=== PATIENT | female | born 1975 | race Caucasian/White ===

== ENCOUNTER 2016-11-21 02:34 | Emergency (ER) | payer OTHER ==
[~2016-11-21] VITALS: Ht 157.5 cm; Wt 51.0 kg
[~2016-11-21 02:34] MED LIST: HYDR-845; NITR-58 PO; PRED20TA; TRIA10PO2
[2016-11-21 03:10] VITALS: Ht 157.5 cm; Wt 51.0 kg
[2016-11-21 03:58] LABS: ADD UMIC YES; UR ASCORBIC ACID NEGATIVE (NEGATIVE); UR BACTERIA FEW /HPF (NONE SEEN); UR BILIRUBIN (Dip) NEGATIVE (NEGATIVE); UR BLOOD (Dip) NEGATIVE (NEGATIVE); UR CLARITY CLEAR (CLEAR); UR COLOR STRAW (YELLOW); UR GLUCOSE (Dip) NEGATIVE (NEGATIVE); UR KETONES (Dip) NEGATIVE (NEGATIVE); UR LEUKOCYTE ESTERASE (Dip) TRACE Leu/ul (NEGATIVE); UR NITRITE (Dip) NEGATIVE (NEGATIVE); UR RBC 1 /HPF (0-5); UR SPECIFIC GRAVITY (Dip) 1.005 (1.003-1.030); UR SQUAMOUS EPITHELIAL CELL FEW /HPF (FEW); UR TOTAL PROTEIN (Dip) NEGATIVE (NEGATIVE); UR UROBILINOGEN (Dip) NEGATIVE (NEGATIVE)
--- NOTE | 2016-11-21 04:16 | ERD ---
ER Documentation Chief Complaint Date/Time DATE: 11/21/16 Chief Complaint Vaginal itching, dysuria HPI The patient is a 41-year-old female who presents to the Emergency Department with complaint of vaginal itching, discharge and dysuria. The patient reports that her symptoms began 2 days ago, with onset of vaginal itching, with associated irritation, and development of clumpy, white vaginal discharge. Since onset of her symptoms, she notes that she has been experiencing a burning pain upon urination. Otherwise, denies any urinary frequency, urgency, hesitancy , hematuria or flank pain. Denies fevers, sweats, chills, nausea, vomiting, abdominal pain, vaginal bleeding. Denies recent antibiotic use. Last menstrual period was 10/28/2016, and normal. Denies recent or new sexual contacts. No other complaints at this time. ROS All systems reviewed and are negative except as per history of present illness. Medications Home Meds Active Scripts Nitrofurantoin Monohyd Macrocr* (Macrobid*) 100 Mg Capsr, 100 MG PO BID for 7 Days, CAP Prov:ALEXIA LOZANO 01/24/15 Reported Medications Triamcinolone (Triamcinolone Powder) 10 Gm Powder 05/06/09 Hydroxyzine Hcl* (Atarax*) 50 Mg Tab 05/06/09 Prednisone (Prednisone) 20 Mg Tablet 05/06/09 Allergies Allergies: Coded Allergies: No Known Allergy (Verified , 12/03/13) PMhx/Soc Medical and Surgical Hx: pt denies Medical Hx, pt denies Surgical Hx History of Surgery: No Hx Neurological Disorder: No Hx Respiratory Disorders: No Hx Cardiac Disorders: No Hx Psychiatric Problems: No Hx Miscellaneous Medical Probl: No Hx Alcohol Use: No Hx Substance Use: No Hx Tobacco Use: No Smoking Status: Never smoker Physical Exam Vitals Vital Signs Date Time Temp Pulse Resp B/P Pulse Ox O2 Delivery O2 Flow Rate FiO2 11/21/16 04:54 97.1 67 17 99/52 98 Room Air 11/21/16 03:10 98.3 62 16 95/51 100 Physical Exam GENERAL: Well-developed, well-nourished, in no acute distress HEENT: Head is normocephalic, atraumatic. No scleral pallor or icterus. Pupils equal, round and reactive to light. Conjunctiva pink. Moist mucous membranes. NECK: Supple. Full range of motion. RESPIRATORY: Lungs are clear to auscultation bilaterally. Equal breath sounds. Normal expiratory effort. CARDIOVASCULAR: Regular rate and rhythm. S1 and S2 normal. GASTROINTESTINAL: Abdomen is soft, nontender, and nondistended. No guarding, no rebound tenderness. Normal bowel sounds. FLANK: No CVA tenderness, no mass or swelling. BACK: No midline tenderness. GENITOURINARY: Normal external genitalia. Irritation at the introitus, with mild erythema, and white curd-like vaginal discharge noted. No bleeding. No cervical motion. No adnexal tenderness. No uterine tenderness. No masses. EXTREMITIES: No clubbing, cyanosis, or edema. Normal skin perfusion. Moving all extremities. Muscle tone is normal. No focal swelling or erythema. Distal pulses are palpable, 2+ bilaterally. Capillary refill is less than 2 seconds. NEUROLOGIC: The patient is alert, awake, and oriented x 3. No focal neurologic deficits. INTEGUMENT: Skin is clean, dry and intact. No rashes, lesions or petechiae present. Normal turgor. PSYCHIATRIC: Appropriate; Cooperative. Results 24 hrs Laboratory Tests Test 11/21/16 03:38 Urine Color STRAW Urine Clarity CLEAR Urine pH 5.0 Urine Specific Ajo 1.005 Urine Ketones NEGATIVEmg/dL Urine Nitrite NEGATIVEmg/dL Urine Bilirubin NEGATIVEmg/dL Urine Urobilinogen NEGATIVEmg/dL Urine Leukocyte Esterase TRACELeu/ul Urine Microscopic RBC 1/HPF Urine Microscopic WBC 2/HPF Urine Squamous Epithelial Cells FEW/HPF Urine Bacteria FEW/HPF Urine Hemoglobin NEGATIVEmg/dL Urine Glucose NEGATIVEmg/dL Urine Total Protein NEGATIVEmg/dl Current Medications Medications (Trade) Dose Ordered Sig/Rito Route PRN Reason Start Time Stop Time Status Last Admin Dose Admin Fluconazole (Diflucan) 150 mg ONCE ONCE PO 11/21/16 04:30 11/21/16 04:31 DC 11/21/16 04:54 Procedures/MDM This is a 41-year-old female presenting to the Emergency Department with complaint of vaginal itching/burning, white cottage cheese-like vaginal discharge, dysuria, for the past 2 days. On physical examination, she had white curd-like vaginal discharge noted with irritation at the introitus, consistent with candidiasis. Otherwise, no purulent discharge, no active bleeding, no cervical motion tenderness. Vital signs are stable. Patient does not believe her symptoms to be secondary to STI. Differential diagnosis includes, but is not limited to, urinary tract infection, PID, TOA, cervicitis, dermatitis, chlamydia, gonorrhea, bacterial vaginosis, candidiasis, herpes, lichen sclerosus , trichomoniasis. Urinalysis with negative nitrites, no significant leukocyte esterase, doubt urinary tract infection. However, urine culture sent. Negative urine . She has not had fever or any constitutional symptoms, no flank pain or CVA tenderness, and therefore I doubt pyelonephritis. After rest, the patient reports no new complaints. Upon my review and interpretation of the patient's presentation and overall ER course, I believe that the patient's symptoms are most consistent with vulvovaginal candidiasis. The patient was given a dose of Fluconazole 150 mg PO in the ED. At this time the patient is in stable condition and therefore can be discharged home with strict return precautions for signs of deteriorating or worsening condition. She is instructed to follow up with her primary care provider within 2-3 days for re-evaluation and further management or return to the ER sooner for any worsening symptoms. I shared my medical decision making and plan with the patient and she verbally understands and agrees with the plan for further observation and care as an outpatient. At the time of discharge, all questions were answered. Departure Diagnosis: Primary Impression: Vulvovaginal candidiasis Condition: Stable Patient Instructions: Vaginal Infection: Yeast (Candidiasis) Additional Instructions: Llame al doctor MAANA y narciso laure MIKE PARA DENTRO DE 2-3 MURPHY.Dgale a la secretaria que nosotros le instruimos hacer esta mike.Avise o llame si hoskins condicin se empeora antes de la mike. Regresa aqui si peor o no mejor. CAROL MEDINA PA-C Nov 21, 2016 04:16
[2016-11-21] MEDS ORDERED: FLUCONAZOLE 150 MG TAB PO ONE (04:30)
[2016-11-21 04:54] VITALS: BP 99/52; PULSE 67; RESP 17; TEMP 97.1
== END 2016-11-21 04:54 | disposition home or self-care (01) ==
LOC: FTE 02:34
DX: B37.3 Candidiasis of vulva and vagina (principal)
CPT/HCPCS: 81001; 87086; Z7502; Z7610; 99284

== ENCOUNTER 2017-09-25 08:58 | Emergency (ER) | END 2017-09-25 09:58 | disposition home or self-care (01) ==

== ENCOUNTER 2018-10-07 19:57 | Emergency (ER) | payer OTHER ==
[~2018-10-07] VITALS: Ht 160 cm; Wt 52.5 kg
[~2018-10-07 19:57] MED LIST changes: +CETI10CA PO
[2018-10-07 20:11] VITALS: Ht 160 cm; Wt 52.5 kg
[2018-10-07] MEDS ORDERED: KETOROLAC 60 MG INJ IM STA (22:48)
[2018-10-07] MEDS ORDERED: CEPH-443 PO (22:52)
[2018-10-07] MEDS ORDERED: PHEN-538 PO (22:52)
[2018-10-07] MEDS ORDERED: IBUP-1542 PO (22:52)
[2018-10-07] MEDS ORDERED: CEPHALEXIN 500 MG CAP PO ONE (23:00)
[2018-10-07] MEDS ORDERED: PHENAZOPYRIDINE 100 MG TAB PO ONE (23:00)
[2018-10-07 23:10] VITALS: BP 110/55; PULSE 80; RESP 20
--- NOTE | 2018-10-08 16:34 | ERD ---
ER Documentation Chief Complaint Chief Complaint painful/burning urination x 2 hours HPI History of Present Illness: 43-year-old female who denies a past medical history coming in today due to complaint of dysuria for 2 hours prior to arrival. Patient denies any other associated symptoms. At home pharmacological/nonpharmacological treatment for symptoms: Denies Denies social concerns; Denies recent foreign travel ROS All systems reviewed and are negative except as per history of present illness. Medications Home Meds Active Scripts Ibuprofen* (Motrin*) 600 Mg Tab, 600 MG PO Q6H PRN for PAIN AND OR ELEVATED TEMP, #30 TAB Prov:EDMOND COOPER V PUMP SERVICER HELPER 10/07/18 Phenazopyridine Hcl* (Pyridium*) 200 Mg Tab, 200 MG PO TID PRN for URINARY PAIN, #5 TAB Prov:EDMOND COOPER V PUMP SERVICER HELPER 10/07/18 Cephalexin* (Keflex*) 500 Mg Capsule, 500 MG PO TID for URINE INFECTION for 7 Days, #20 CAP Prov:EDMOND COOPER V PUMP SERVICER HELPER 10/07/18 Cetirizine Hcl* (Zyrtec*) 10 Mg Capsule, 10 MG PO DAILY, #10 TAB.CHEW Prov:TETE GARCIA-C 09/25/17 Nitrofurantoin Monohyd Macrocr* (Macrobid*) 100 Mg Capsr, 100 MG PO BID for 7 Days, CAP Prov:TETE GARCIA PA-C 09/25/17 Nitrofurantoin Monohyd Macrocr* (Macrobid*) 100 Mg Capsr, 100 MG PO BID for 7 Days, CAP Prov:ALEXIA LOZANO 01/24/15 Reported Medications Triamcinolone (Triamcinolone Powder) 10 Gm Powder 05/06/09 Hydroxyzine Hcl* (Atarax*) 50 Mg Tab 05/06/09 Prednisone (Prednisone) 20 Mg Tablet 05/06/09 Allergies Allergies: Coded Allergies: No Known Allergy (Verified , 09/25/17) PMhx/Soc Medical and Surgical Hx: pt denies Medical Hx, pt denies Surgical Hx History of Surgery: No Hx Neurological Disorder: No Hx Respiratory Disorders: No Hx Cardiac Disorders: No Hx Psychiatric Problems: No Hx Miscellaneous Medical Probl: No Hx Alcohol Use: Yes (SOCIAL) Hx Substance Use: No Hx Tobacco Use: No Smoking Status: Never smoker FmHx Family History: diabetes, coronary disease Physical Exam Vitals Vital Signs Date Temp Pulse Resp B/P (MAP) Pulse Ox O2 O2 Flow FiO2 Time Delivery Rate 10/07/18 97.9 80 20 110/55 100 Room Air 23:10 (73) 10/07/18 97.9 79 20 104/54 98 20:11 (71) Physical Exam Const: No acute distress, afebrile Head: Atraumatic Eyes: Normal Conjunctiva ENT: Normal External Ears, Nose and Mouth. Neck: Full range of motion. No meningismus. Resp: Clear to auscultation bilaterally Cardio: Regular rate and rhythm, no murmurs Abd: Soft, suprapubic tenderness, non distended. No guarding, no masses, no rigidity Skin: No petechiae or rashes Back: No midline or flank tenderness Ext: No cyanosis, or edema Neur: Awake and alert x3, speaking in clear sentences, no focal deficits or facial asymmetry Psych: Normal Mood and Affect Results 24 hrs Laboratory Tests Test 10/07/18 20:31 10/07/18 22:32 10/07/18 22:33 Urine Color HEMALATHA Urine Clarity CLEAR Urine pH 6.0 Urine Specific Holden 1.004 Urine Ketones NEGATIVE mg/dL Urine Nitrite POSITIVE mg/dL Urine Bilirubin NEGATIVE mg/dL Urine Urobilinogen NEGATIVE mg/dL Urine Leukocyte Esterase 1+ Lupe/ul Urine Microscopic RBC 0 /HPF Urine Microscopic WBC 24 /HPF Urine Bacteria FEW /HPF Urine Hemoglobin NEGATIVE mg/dL Urine Glucose NEGATIVE mg/dL Urine Total Protein NEGATIVE mg/dl POC Beta HCG, Qualitative NEGATIVE Bedside Urine pH (LAB) 5.5 Bedside Urine Protein (LAB) Negative Bedside Urine Glucose (UA) Negative Bedside Urine Ketones (LAB) Negative Bedside Urine Blood Trace-intact Bedside Urine Nitrite (LAB) Positive Bedside Urine Leukocyte Esterase Trace (L Current Medications Medications Dose Sig/Rito Start Time Status Last (Trade) Ordered Route PRN Stop Time Admin Dose Reason Admin Cephalexin 500 mg ONCE ONCE 10/07/18 DC 10/07/18 (Keflex) PO 23:00 23:05 10/07/18 23:01 200 mg ONCE ONCE 10/07/18 DC 10/07/18 Phenazopyridi PO 23:00 23:05 ne HCl 10/07/18 23:01 (Pyridium) Ketorolac 60 mg ONCE STAT 10/07/18 DC 10/07/18 Tromethamine IM 22:48 23:05 (Toradol) 10/07/18 22:50 Procedures/MDM ED COURSE: ED course includes a thorough examination and history. The patient was stable throughout ED course. I kept the patient and/or family informed of laboratory and diagnostic imaging results throughout the ED course. LABS: Urine negative Urinalysis positive for nitrites, 1+ leukocyte Estrace, 24 WBCs, few bacteria MEDICATIONS GIVEN IN ER: Ketorolac, cephalexin, Pyridium Patient tolerated medication well with no adverse reactions. Patient reported improvement in pain. DIAGNOSTIC IMAGING: None PROCEDURES: None. MEDICAL DECISION MAKING: Low suspicion for life-threatening medical emergency. Otherwise healthy patient presenting with constellation of symptoms likely representing urinary tract infection, lab findings. As characterized by history, physical exam findings, Patient reassessment @ 2254: Results discussed. Patient hemodynamically stable. No respiratory distress, otherwise relatively well appearing and nontoxic. Disposition given. Patient educated on diagnoses, prescriptions, follow-up care, return precautions. Strict return precautions given for worsening condition; questions answered discharge. Patient verbalizes understanding of discharge instructions. PRESCRIPTIONS FOR HOME: []. DISPOSITION: DISCHARGE At this time, patient is stable for discharge and outpatient management. I have instructed the patient to follow-up with his/her primary care physician in 1-2 days. I have discussed with the patient the possibility of needing to see a specialist for further workup and imaging studies if symptoms persist. I have instructed the patient to promptly return to the ER for any new or worsening symptoms including increased pain, fever, nausea, vomiting, weakness or LOC. The patient and/or family expressed understanding of and agreement with this plan. All questions were answered. Home care instructions were provided. DISCLAIMER: Inadvertent spelling and grammatical errors are likely due to EHR/dictation software use and do not reflect on the overall quality of patient care. Also, oni clarke note that the electronic time recorded on this note does not necessarily reflect the actual time of the patient encounter. Departure Diagnosis: Primary Impression: UTI (urinary tract infection) Urinary tract infection type: site unspecified Hematuria presence: without hematuria Qualified Codes: N39.0 - Urinary tract infection, site not specified Condition: Stable Patient Instructions: Urinary Tract Infections in Women Referrals: [facility] Usted se brennan hecho un examen mdico de control que le indica que no est en laure condicin que requiera tratamiento urgente en el Departamento de Emergencia. Un estudio ms profundo y el tratamiento de pollock condicin pueden esperar sin ningn riesgo hasta que usted sea atendida/o en el consultorio de pollock mdico o laure clnica. Es responsabilidad suya arreglar laure davi para el seguimiento del escobar. MANEJO DE CONDICIONES NO URGENTES EN EL FUTURO 1) Si usted tiene un mdico de atencin primaria: Usted debera llamar a pollock mdico de atencin primaria antes de venir al departamento de emergencia. Despus de las horas de consultorio, pollock doctor o pollock asociado/a est disponible por telfono. El mdico o enfermero de nicholas en el servicio telefnico puede asesorarle por joanna medio para atender el problema, o escobar contrario se puede programar laure davi. 2) Si usted no tiene un mdico de atencin primaria: Llame al mdico o clnica de referencia que aparece abajo madisyn las horas de consultorio para hacer laure davi para que le vean. CLINICAS: [facility] [phone] [facility] [phone] [facility] [phone] [address] [facility]. [facility] [phone] [place] [id number] [phone] [facility]. [phone] [address] [facility] [address] [facility] () Usted se brennan hecho un examen mdico de control que le indica que no est en laure condicin que requiera tratamiento urgente en el Departamento de Emergencia. Un estudio ms profundo y el tratamiento de pollock condicin pueden esperar sin ningn riesgo hasta que ted sea atendida/o en el consultorio de pollock mdico o laure clnica. Es responsabilidad suya arreglar laure davi para el seguimiento del escobar. MANEJO DE CONDICIONES NO URGENTES EN EL FUTURO 1) Si usted tiene un mdico de atencin primaria: Usted debera llamar a pollock mdico de atencin primaria antes de venir al departamento de emergencia. Despus de las horas de consultorio, pollock doctor o pollock asociado/a est disponible por telfono. El mdico o enfermero de nicholas en el servicio telefnico puede asesorarle por joanna medio para atender el problema, o escobar contrario se puede programar laure davi. 2) Si usted no tiene un mdico de atencin primaria: Llame al mdico o condado institucions de referencia que aparece abajo madisyn las horas de consultorio para hacer laure davi para que le vean. SI USTED NO PUEDE PAGAR PARA CHUCKIE UN MEDICO puede ir a: [facility] [address] [place] [address] [facility] [address] [place] [address] [facility] [address] [place] [address] [address] [facility] [address] [place], [place] [id number] Additional Instructions: Google Translate utilizado para la traduccin de las siguientes lneas, por favor, disculpe los errores. Muchas jane por permitirnos participar en pollock cuidado. Pollock leonides y seguridad es nuestra principal prioridad en [facility]. Es importante leer todas las instrucciones de nahum y la educacin que se proporcionan en pollock paquete de nahum. Llame a pollock mdico de atencin primaria MAANA para laure davi madisyn los prximos 2 a 4 callahan y lleve toda la informacin y los medicamentos recetados. Llene las recetas y siga exactamente las instrucciones de la etiqueta. -Cefalexina es un antibitico; tome carmen medicamento todos los callahan gabby se indica en pollock receta. Debe completar todo el curso de tratamiento que figura en pollock receta. [place] es muy importante porque se necesitan varios callahan para eliminar las bacterias que causan la infeccin. --Phenazopyridine / Pyridium es un medicamento que ayudar a disminuir el dolor urinario. Carmen medicamento will que pollock orina adquiera un color naranja. Carmen es un efecto secundario normal de la medicacin. --Ibuprofeno es un medicamento que ayuda con el dolor / inflamacin. En la dosis de 600 a 800 mg, esto ayudar con la inflamacin / hinchazn. [place] carmen medicamento segn las indicaciones. Si los sntomas empeoran y opllock proveedor no est disponible, regrese inmediatame nte al Departamento de Emergencias. ----- Google Translate used for translation of following lines, please excuse errors. Thank you very much for allowing us to participate in your care. Your health and safety is our top priority at [facility]. It is important to read all discharge instructions and education provided in your discharge packet. Call your primary care doctor TOMORROW for an appointment during the next 2-4 days and bring all the information and medications prescribed. Have prescriptions filled and follow precisely the directions on the label. -Cephalexin is an antibiotic; take this medication every day as listed on your prescription. You must complete the entire course of treatment that is listed on your prescription this is very important because it takes a certain number of days to kill the bacteria that is causing the infection. --Phenazopyridine/Pyridium is a medication that will help decrease urinary pain. This medication will make your urine turn orange color. This is a normal side effect of the medication. --Ibuprofen is a medication that will help with pain/inflammation. At the dosage of 600 to 800 mg, this will help with inflammation/swelling. Take this medication as prescribed. If the symptoms get worse and your provider is unavailable, return to the Emergency Department immediately. EDMOND COOPER NP Oct 08, 2018 16:34
== END 2018-10-07 23:11 | disposition home or self-care (01) ==
LOC: FTE 19:57
DX: N39.0 Urinary tract infection, site not specified (principal)
CPT/HCPCS: 81001; 81025; 96372; J1885; Z7502; Z7610; 81003